=== PATIENT | female | born 1985 | race Asian ===

== ENCOUNTER 2024-04-24 18:04 | Emergency (ER) | payer OTHER ==
--- OUTSIDE RECORDS SUMMARY | 2024-04-24 18:07 | XMS REPORT | Continuity of Care Document ---
Author Name Unknown Address [address] [place] [address] [facility] thconnect Address 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 Role Phone Pcp, Patient Does Not Have A Primary Care Physic audrey Helder Rayo Attending Clinician Unavailable Nurse, Adc Pob Immunization Attending Clinician Unavailable Niels Perdue DO Attending Clinician Social History Social Habit Start Date Stop Date Quantity Comments Source Sex Assigned At 1985 00:00:00 1985 00:00:00 [facility] Procedures Procedure Date / Time Performed Performing Clinicia n Source SARS-COV-2 COVID-19 VACCINE,0.3ML,IM (PFIZER) 2020-12-20 16:54:31 Doctor Unassigned, [place] [facility] Plan of Care Planned Activity Planned Date Details Comments Source Future Scheduled Test 2021-04-17 00:00:00 INFLUENZA VACCINE (Season Ended) [code = INFLUENZA VACCINE (Season Ended)] [facility] Future Scheduled Test 2006 00:00:00 Screening for malignant neoplasm of cervix (procedure) [code = 352591506] [facility] Future Scheduled Test 2004-01-12 00:00:00 DTaP,Tdap,and Td Vaccines (1 - Tdap) [code = DTaP,Tdap,and Td Vaccines (1 - Tdap)] [facility] Future Scheduled Test 2003 00:00:00 Hepatitis C screening (procedure) [code = 674854777] [facility] Future Scheduled Test 1997 00:00:00 Depression screening (procedure) [code = 965798587] [facility] Future Scheduled Test 1986 00:00:00 VARICELLA VACCINES (1 of 2 - 2-dose childhood series) [code = VARICELLA VACCINES (1 of 2 - 2-dose childhood series)] [facility] Encounters Start Date/Time End Date/Time Encounter Type Admission Type Attending [facility] Care Department Encounter ID Source 2024-01-19 11:58[id number] 2024-01-18 13:31:00 [facility] [id number] [facility] 2023-01-29 08:56:00 [facility] [id number] [facility] 2022-12-31 08:46:02 [facility] [id number] [facility]
--- NOTE | 2024-04-24 18:48 | ER ---
Nurse's Notes [facility] Name: Layne He Age: 39 yrs Sex: Female : 1985 Arrival Date: 04/24/2024 Time: 18:04 Bed 16 Private MD: Diagnosis: 8mm right obstructing proximal ureteral stone with mild hydronephrosis Presentation: 04/24 18:19 Chief complaint: Patient states: right lower back pain starting last night, but tm6 worsening this morning. I went to ER, they did a CT and said I have an 8mm stone. They wanted to admit me, but my kids were down here, so I came here. Coronavirus screen: Vaccine status: Patient reports receiving the 2nd dose of the covid vaccine. Ebola Screen: Patient negative for fever greater than or equal to 101.5 degrees Fahrenheit, and additional compatible Ebola Virus Disease symptoms Patient denies exposure to infectious person. Patient denies travel to an Ebola-affected area in the 21 days before illness onset. No symptoms or risks identified at this time. Initial Sepsis Screen: Does the patient meet any 2 criteria? No. Patient's initial sepsis screen is negative. Does the patient have a suspected source of infection? No. Patient's initial sepsis screen is negative. Risk Assessment: Do you want to hurt yourself or someone else? Patient reports no desire to harm self or others. Onset of symptoms was April 23, 2024. 18:19 Method Of Arrival: Ambulatory tm6 18:19 Acuity: TYAO 3 tm6 Triage Assessment: 18:21 General: Appears uncomfortable, Behavior is calm, cooperative. Pain: Complains of pain tm6 in right low back Pain does not radiate. Pain currently is 5 out of 10 on a pain scale. at worst was 10 out of 10 on a pain scale. Pain began 1 day ago. EENT: No signs and/or symptoms were reported regarding the EENT system. Neuro: Level of Consciousness is awake, alert, obeys commands, Oriented to person, place, time, situation. Cardiovascular: Patient's skin is warm and dry. Respiratory: Airway is patent Respiratory effort is even, unlabored, Respiratory pattern is regular, symmetrical. GI: Abdomen is flat, non-distended, Patient currently denies abdominal pain, diarrhea, nausea, vomiting. : Reports pain in right in lower back Pain is 5 out of 10 on a pain scale. Derm: No signs and/or symptoms reported regarding the dermatologic system. Musculoskeletal: No signs and/or symptoms reported regarding the musculoskeletal system. 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 - Infectious Disease History:: Denies. - Social history:: Smoking status: Patient denies any tobacco usage or history of. Patient/guardian denies using alcohol. Screenin:43 [facility] ED Fall Risk Assessment (Adult) History of falling in the last 3 months, me1 including since admission No falls in past 3 months (0 pts) Confusion or Disorientation No (0 pts) Intoxicated or Sedated No (0 pts) Impaired Gait No (0 pts) Mobility Assist Device Used No (0 pt) Altered Elimination No (0 pt) Score/Fall Risk Level 0 - 2 = Low Risk Maintained a safe environment, Provided non-skid footwear, Hourly rounding (assess needs \T\ fall precautionary measures) done. Abuse screen: Denies threats or abuse. Nutritional screening: No deficits noted. Tuberculosis screening: No symptoms or risk factors identified. Assessment: 18:43 General: Appears comfortable, well groomed, well developed, well nourished, Behavior is me1 calm, cooperative, appropriate for age, Reports right lower back pain starting last night, but worsening this morning. I went to ER, they did a CT and said I have an 8mm stone. They wanted to admit me, but my kids were down here, so I came here. Pain: Complains of pain in right low back Pain does not radiate. Pain currently is 2 out of 10 on a pain scale. at worst was 10 out of 10 on a pain scale. Quality of pain is described as sharp, shooting, Pain began suddenly, 1 day ago. Is continuous. Neuro: Level of Consciousness is awake, alert, obeys commands, Oriented to person, place, time, situation, Appropriate for age. Cardiovascular: Patient's skin is warm and dry. Respiratory: Airway is patent Respiratory effort is even, unlabored, Respiratory pattern is regular, symmetrical. GI: No signs and/or symptoms were reported involving the gastrointestinal system. Bowel sounds present X 4 quads. Abd is soft and non tender X 4 quads. : Reports pain in right flank(s), since last night. EENT: No signs and/or symptoms were reported regarding the EENT system. Derm: Skin is intact, is healthy with good turgor, Skin is pink, warm \T\ dry. Musculoskeletal: No signs and/or symptoms reported regarding the musculoskeletal system. 19:47 General: Appears in no apparent distress. Behavior is calm, cooperative, appropriate rg5 for age. Pain: Complains of pain in abdomen Pain currently is 3 out of 10 on a pain scale. Quality of pain is described as aching, Pain began 1 day ago. Neuro: Level of Consciousness is awake, alert, obeys commands, Oriented to person, place, time. Cardiovascular: Denies chest pain, shortness of breath. Respiratory: Airway is patent Trachea midline Respiratory effort is even, unlabored, Respiratory pattern is regular. GI: Abdomen is round non-distended, Abd is soft and non tender. : No signs and/or symptoms were reported regarding the genitourinary system. EENT: No deficits noted. Derm: No deficits noted. Skin is intact, is healthy with good turgor, Skin is normal, Skin temperature is warm. Musculoskeletal: Range of motion: intact in all extremities. 20:30 Reassessment: Patient and/or family updated on plan of care and expected duration. Pain rg5 level reassessed. Vital Signs: 18:19 BP 132 / 89; Pulse 71; Resp 19; Temp 98.3(O); Pulse Ox 99% on R/A; Weight 77.11 kg; tm6 Height 5 ft. 4 in. ; Pain 5/10; 19:05 BP 134 / 98; Pulse 69; Resp 17; Temp 98.3; Pulse Ox 100% ; Pain 3/10; rg5 20:10 BP 140 / 97; Pulse 66; Resp 18; Temp 98(O); Pulse Ox 100% ; Pain 3/10; rg5 18:19 Body Mass Index 29.18 (77.11 kg, 162.56 cm) tm6 18:19 Pain Scale: Adult tm6 19:05 Pain Scale: Adult rg5 20:10 Pain Scale: Adult rg5 ED Course: 18:06 Patient arrived in ED. mr 18:12 Lidia Zimmerman PA-C is PHCP. sb4 18:12 Ronn Gilliam MD is Attending Physician. sb4 18:19 Jackie Reyes, APOORVA is Primary Nurse. me1 18:21 Triage completed. tm6 18:22 Arm band placed on. hb 18:43 Patient has correct armband on for positive identification. Bed in low position. Call me1 light in reach. Side rails up X2. Provided Education on: POC. Verbalized understanding. . Client placed on continuous cardiac and pulse oximetry monitoring. NIBP monitoring applied. Pulse ox on. NIBP on. 18:43 No provider procedures requiring assistance completed. me1 19:10 Resting quietly. rg5 19:15 transfer approval from receiving facility. rg5 19:37 [id number] called [facility] talked with [place]. Stated she will work on transfer sp and call me back. 19:45 Inserted saline lock: 20 gauge in right antecubital area, using aseptic technique. rg5 Flushed with 10 mL NS. 20:40 Patient transferred, IV remains in place. intact, No redness/swelling at site. rg5 20:[address] Wendy Pierson accepted pt to [facility]-- admin approval 1954 Stephany Ann RN, TC report number [phone] [facility] bed #[id number] fax [phone]. called [facility] talked to [facility] for transport. Administered Medications: 20:00 Drug: Rocephin IV 1 grams IV at calculated rate once; Given slow IV push per pharmacy rg5 instructions Route: IV; Rate: calculated rate; Site: right antecubital; 20:15 Follow up: Response: No adverse reaction; IV Status: Completed infusion rg5 Medication: 18:43 VIS not applicable for this client. me1 Outcome: 18:48 ER care complete, transfer ordered by . sb4 20:39 Transferred by ground EMS to [facility], rg5 20:39 Condition: stable 20:39 Discharge instructions given to EMS, 20:44 Patient left the ED. rg5 Signatures: Elsie Gomez Mary, Reg Reg Estelle Yo, RN Lidia Beltran PA-C PAAdina sb4 Jackie Reyes RN RN me1 Neema Green RN RN tm6 Justin Aponte RN RN rg5 Corrections: (The following items were deleted from the chart) 18:43 18:19 Chief complaint: Patient states: right lower back pain starting last night, but me1 worsening this morning. I went to ER, they did a CT and said I have an 8mm stone. They wanted to admit me, but my kids were down here, so I came here tm6
--- NOTE | 2024-04-24 18:48 | EDPHYS ---
Physician Documentation [facility] Name: Layne He Age: 39 yrs Sex: Female : 1985 Arrival Date: 04/24/2024 Time: 18:04 Bed 16 Private MD: ED Physician Ronn Gilliam HPI: 04/24 18:42 This 39 yrs old Female presents to ER via Ambulatory with complaints of Kidney sb4 Stone. 18:42 Patient states that she started experiencing some right lower back pain last night. She sb4 went to the [facility] emergency room this morning, was diagnosed with an 8 mm kidney stone, admission was recommended, but she refused because she wanted to come to a hospital closer to her children. She states that her pain has improved. She denies any issues urinating. She states that she has had kidney stones in the past but they have always passed on their own. 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 - Infectious Disease History:: Denies. - Social history:: Smoking status: Patient denies any tobacco usage or history of. Patient/guardian denies using alcohol. ROS: 18:42 Constitutional: Negative for fever, chills, and weight loss, sb4 18:42 Back: Positive for flank pain, on the right, 18:42 All other systems are negative, Exam: 18:42 Constitutional: This is a well developed, well nourished patient who is awake, alert, sb4 and in no acute distress. Head/Face: Normocephalic, atraumatic. Eyes: Extra-ocular motions intact. Periorbital areas with no swelling, redness, or edema. ENT: Mucous membranes moist. 18:42 Skin: Warm, dry with normal turgor. Normal color with no rashes, no lesions, and no evidence of cellulitis. MS/ Extremity: Pulses equal, no cyanosis. Neurovascular intact. Full, normal range of motion. Neuro: Awake and alert, GCS 15, oriented to person, place, time, and situation. Motor strength 5/5 in all extremities. Sensory grossly intact. 18:42 Back: CVA tenderness, is noted on the right, Vital Signs: 18:19 BP 132 / 89; Pulse 71; Resp 19; Temp 98.3(O); Pulse Ox 99% on R/A; Weight 77.11 kg; tm6 Height 5 ft. 4 in. ; Pain 5/10; 19:05 BP 134 / 98; Pulse 69; Resp 17; Temp 98.3; Pulse Ox 100% ; Pain 3/10; rg5 20:10 BP 140 / 97; Pulse 66; Resp 18; Temp 98(O); Pulse Ox 100% ; Pain 3/10; rg5 18:19 Body Mass Index 29.18 (77.11 kg, 162.56 cm) tm6 18:19 Pain Scale: Adult tm6 19:05 Pain Scale: Adult rg5 20:10 Pain Scale: Adult rg5 MDM: 18:12 Patient medically screened. sb4 18:44 ED course: We do not have urology available at this time and patient will require sb4 transfer. Will attempt transfer back to [facility]. Patient understands and is in agreement with the plan. 18:48 Data reviewed: vital signs, nurses notes, diagnostic data from outside facility, CBC, sb4 electrolytes, radiologic studies, CT scan, urinalysis. 04/24 19:18 Order name: IV Start; Complete Time: 19:39 sb4 Administered Medications: 20:00 Drug: Rocephin IV 1 grams IV at calculated rate once; Given slow IV push per pharmacy rg5 instructions Route: IV; Rate: calculated rate; Site: right antecubital; 20:15 Follow up: Response: No adverse reaction; IV Status: Completed infusion rg5 Disposition: 19:12 Co-signature as Attending Physician, Ronn Gilliam MD I reviewed the patient's care rt provided by the Advanced Practice Provider and agree with the diagnosis and treatment plan. Disposition Summary: 04/24/24 18:48 Transfer Ordered Notes: Transfer Location: [facility] sb4 Reason: Higher level of care sb4 Condition: Stable sb4 Problem: new sb4 Symptoms: are unchanged sb4 Accepting Physician: urology(04/24/24 20:44) rg5 Diagnosis - 8mm right obstructing proximal ureteral stone with mild hydronephrosis sb4 Forms: - Medication Reconciliation Form sb4 - SBAR form sb4 Signatures: Lidia Zimmerman PA-C PA-C sb4 Ronn Gilliam MD MD rt Neema Green RN RN tm6 Justin Aponte RN RN rg5 Corrections: (The following items were deleted from the chart) 20:44 18:48 urology sb4 rg5
[2024-04-24] MEDS ORDERED: CEFTRIAXONE 1000 MG/VIAL ONE (19:56)
[2024-04-24 20:53] VITALS: O2SAT 100
[2024-04-24 20:55] VITALS: BP 140/97; TEMP 98
== END 2024-04-24 20:44 | disposition short-term general hospital (02) ==
LOC: ER 18:04
DX: N13.2 Hydronephrosis with renal and ureteral calculous obstruction (principal)
CPT/HCPCS: 96374; 99285; J0696